=== PATIENT | female | born 1965 | race Two or more races ===

== ENCOUNTER → 2022-06-25 | Emergency (ER) | payer OTHER ==
[~2022-06-25] VITALS: Ht 160 cm; Wt 75.0 kg
[2022-06-25 18:47] VITALS: BP 131/64
== END | disposition left against medical advice (07) ==
LOC: ER 18:38
DX: R51.9 Headache, unspecified (principal); Z53.21 Procedure and treatment not carried out due to patient leaving prior to being seen by health care provider; W22.8XXA Striking against or struck by other objects, initial encounter; Y93.89 Activity, other specified; Y92.89 Other specified places as the place of occurrence of the external cause; Y99.8 Other external cause status